=== PATIENT | male | born 1970 | race Two or more races ===

== ENCOUNTER 2018-12-13 02:47 | Emergency (ER) | payer MEDICAID ==
[~2018-12-13] VITALS: Ht 172.7 cm; Wt 81.6 kg
[2018-12-13] VITALS (7 sets, daily range): BP systolic 138–164; BP diastolic 80–88
[~2018-12-13 02:47] MED LIST: RISPERDAL3 MG PO
--- NOTE | 2018-12-13 02:47 | NUR ---
ED Nurse Note: pt brought in by [facility] from home c/o SI. per EMS report, pt's sister called 911, pt stating "Kill Me", denies HI/VH/AH. Pt currently repeately stating "Kill me, I have too many problems". Unable to assess pt's A&o status due to pt not answering questions. Pt farsi speaking, flat affect, skin warm and dry, resp even and unlabored on RA, -n/v/d, sinus tach on gambling monitor, vss, will cont monitor. ERMD at the bedside.
[2018-12-13] MEDS ORDERED: LORazepam Inj 2mg/ml 1ml IV ONE ×2 (03:00→12:30)
[2018-12-13 03:05] LABS: APPEARANCE,URINE CLEAR; BASOPHILS % (AUTO) 0.7 % (0.0-2.0); BILIRUBIN, URINE NEGATIVE (NEGATIVE); EOSINOPHILS % (AUTO) 0.4 % (0.0-3.0); GLUCOSE, URINE (UA) NEGATIVE (NEGATIVE); HEMATOCRIT 48.4 % (42.0-52.0); HEMOGLOBIN 16.2 G/DL (14.2-18.0); KETONES,URINE 2+ (NEGATIVE); LEUKOCYTE ESTERASE ,URINE 2+ (NEGATIVE); LYMPHOCYTES % (AUTO) 22.9 % (20.0-45.0); MEAN CORPUSCULAR VOLUME 85 FL (80-99); MONOCYTES % (AUTO) 9.2 % (1.0-10.0); NITRITE,URINE NEGATIVE (NEGATIVE); PH,URINE 5 (4.5-8.0); PLATELET COUNT 209 K/UL (150-450); PROTEIN,URINE 2+ (NEGATIVE); RED CELL DISTRIBUTION WIDTH 11.5 % (11.6-14.8); UROBILINOGEN,URINE NORMAL MG/DL (0.0-1.0); WHITE BLOOD COUNT 9.7 K/UL (4.8-10.8)
[2018-12-13 03:07] LABS: COLOR,URINE YELLOW
[2018-12-13 03:15] LABS: ANION GAP 10 mmol/L (5-15); BLOOD UREA NITROGEN 19 mg/dL (7-18); CALCIUM 9.4 MG/DL (8.5-10.1); CARBON DIOXIDE 27 MMOL/L (21-32); CHLORIDE 103 MMOL/L (98-107); CREATININE 0.9 MG/DL (0.55-1.30); POTASSIUM 3.5 MMOL/L (3.5-5.1); SODIUM 140 MMOL/L (136-145)
[2018-12-13 03:20] LABS: ALANINE AMINOTRANSFERASE 79 U/L (12-78); ALBUMIN 4.3 G/DL (3.4-5.0); ALBUMIN/GLOBULIN RATIO 1.2 (1.0-2.7); ALKALINE PHOSPHATASE 69 U/L (46-116); ASPARTATE AMINO TRANSFERASE 82 U/L (15-37); BILIRUBIN,TOTAL 0.6 MG/DL (0.2-1.0)
--- NOTE | 2018-12-13 03:20 | NUR ---
ED Nurse Note: Spoke with pt's sister, pt's sister stated that he has been displaying bizzare behavior prior to sat, pt had increase risperdal dose since sat, pt had dinner and took melatonin and slept 2 hrs today and woke up, start stating "Kill Me" and demonstrated bizzare behavior. Pt's sister states he has never had this behavior before. ERMD notified. will cont monitor.
--- NOTE | 2018-12-13 03:28 | Emergency Room Report ---
History of Present Illness General Chief Complaint: Behavioral Complaint Source: Patient, Family Member, EMS Present Illness HPI Is a 48-year-old male with a history of depression. He takes Lexapro and Risperdal. He presents with chief complaint of suicidal thoughts. There was a in the family and he took it pretty hard according to his sister. He's been more depressed and not sleeping much. He was talking to himself so his sister increase his Risperdal dose. Yesterday he was fine sleeping comfortably. Tonight he was unable to sleep so she gave him melatonin. She called 911 because he was catatonic and refuse to talk or move. When EMS came, he keeps saying that he want to . Here he told the nurse to "kill me because have too many issues." No alcohol or drug use. Allergies: Coded Allergies: No Known Allergies (Unverified , 12/13/18) Patient History Past Medical History: see triage record, old chart reviewed, psych hx, depression Past Surgical History: other Family History: none Social History: other Immunizations: UTD Reviewed Nursing Documentation: PMH: Agreed; PSxH: Agreed Nursing Documentation-PMH Past Medical History: No History, Except For History Of Psychiatric Problem: Yes - bipolar Review of Systems ENT: Denies: sore throat Cardiovascular: Denies: chest pain, palpitations Gastrointestinal/Abdominal: Denies: nausea, vomiting, diarrhea Musculoskeletal: Denies: back problems Skin: Denies: rash Psychiatric: Reports: prior history, depression, suicidal/homicidal ideations Neurological: Denies: BARNES, seizures All Other Systems: negative except mentioned in HPI Physical Exam Vital Signs Date Time Temp Pulse Resp B/P (MAP) Pulse Ox O2 Delivery O2 Flow Rate FiO2 12/13/18 02:27 98.4 112 18 159/86 98 Room Air vitals with high blood pressure Sp02 EP Interpretation: reviewed, normal General Appearance: alert/responsive, no apparent distress, non-toxic Head: normocephalic, atraumatic Eyes: PERRL, EOMI ENT: oropharynx normal Neck: supple/symm/no masses Respiratory: effort normal, no rhonchi, no wheezing Cardiovascular: no murmur, gallop, rub Gastrointestinal: non-tender, no mass, non-distended, no rebound/guarding, normal bowel sounds Musculoskeletal: gait & station normal Neurologic: oriented x3, sensory intact, motor strength/tone normal Skin: no rash, normal palpation Medical Decision Making Diagnostic Impression: Primary Impression: Suicidal behavior Qualified Codes: R46.89 - Other symptoms and signs involving appearance and behavior Additional Impression: Major depression with psychotic features ER Course Patient with depression with psychotic feature and suicidal thoughts. No alcohol or drugs. There is no trauma. In my opinion, patient is a danger to self and I put him on a 5150 hold. Patient is medically clear for psychiatric transfer. Lab Results Impression labs normal Last Vital Signs Date Time Temp Pulse Resp B/P (MAP) Pulse Ox O2 Delivery O2 Flow Rate FiO2 12/13/18 02:27 98.4 112 18 159/86 98 Room Air Status: improved Disposition: XFER TO PSYCH HOSP/UNIT Condition: Stable Referrals: ALICIA PARDO,REFERRING (PCP) Javier Moreno MD Dec 13, 2018 03:28
--- NOTE | 2018-12-13 03:34 | NUR ---
HAND-OFF: Report given to Cayla RUDOLPH and endorsec are, pt's family in the waiting room,pt vss, sinus tach on hall monitor, iv intact and patent, resp even and unlabored on RA, airway intact, no changes in neuro status/pt's behavioral condition.
--- NOTE | 2018-12-13 04:00 | NUR ---
ED Nurse Note: REASSESSED PT NEUROLOGICAL STATUS, PT IS AOX4, PT IS CURRENTLY COMPLIANT TO QUESTIONS. PT DENIES PAIN, PT IS ON ROOM AIR, ABLE TO AMBULATE WITH STEADY GAIT AND IS CONTINENT. PT HAS NO SUICIDEAL IDEATION AT THIS TIME OR PLAN
--- NOTE | 2018-12-13 05:30 | NUR ---
ED Nurse Note: PT IS RESTLESS, PACING BACK AND FORTH IN ROOM. PT IS CONSOLABLE, USE OF REORIENTATION TO ENVIRONMENT SUCCESSFUL. PT SHOWS NO SIGNS OF SELF HARM OR PLAN THEREOF.
--- NOTE | 2018-12-13 05:33 | NUR ---
ED Nurse Note: PT IV LINE DISCONTINUED, PER PRECAUTIONARY MEASURES, DUE TO PT HAVING BIPOLAR TENDANCIES (COOPERATIVE/UNCOOPERATIVE) ERMD AWARE.
--- NOTE | 2018-12-13 07:18 | NUR ---
ED Nurse Note: REPORT RECEIVED FROM KLAUDIA DURAN. PT AOX4, CALM AND COOPERATIVE. AMBULATORY WITH STEADY GAIT. PT PLACED ON BEATER BOSS. ON INITIAL ASSESSMENT, PT IS TACHYCARDIC WITH HR OF 113. PT DENIES SI/HI.
--- NOTE | 2018-12-13 08:15 | NUR ---
ED Nurse Note: KOSHER BREAKFAST TRAY PROVIDED FOR PT.
--- NOTE | 2018-12-13 09:21 | NUR ---
ED Nurse Note: REPORT GIVEN TO KLAUDIA SHEPPARD.
--- NOTE | 2018-12-13 11:09 | NUR ---
ED Nurse Note:report given to mckayla peraza
--- NOTE | 2018-12-13 11:39 | NUR ---
ED Nurse Note:pt. was picked up by j[facility] for transfer to [facility], report givne pt. is stable for transfer
--- NOTE | 2018-12-13 11:45 | NUR ---
ED Nurse Note: AMBULANCE AT THE BEDSIDE. PT IS AGITATED AND COMBATIVE. NOTIFIED ERMD. RECEIVE VERBAL ORDER FROM ERMD TO GIVE 5MG HALDOL IM AND 2MG ATIVAN IM. WILL FOLLOW UP ON ORDER.
[2018-12-13] MEDS ORDERED: Haloperidol 5mg/ml Inj ONE (11:56)
[2018-12-13] MEDS ORDERED: LORazepam Inj 2mg/ml 1ml ONE (11:56)
--- NOTE | 2018-12-13 12:20 | NUR ---
ED Nurse Note: PT IS MORE CALM AFTER MEDS, 121/69, HR OF 101, RR 20, RA O2 SAT OF 97%. PT WAS TRANSFERRED OUT OF ER VIA GURNEY BY AMBULANCE. NO S/S OF DISTRESS.
[2018-12-13] MEDS ORDERED: Haloperidol 5mg/ml Inj IM ONE (12:30)
== END 2018-12-13 12:00 ==
LOC: EDBD 02:47 → EMR 03:09
DX: R45.851 Suicidal ideations (principal); F32.9 Major depressive disorder, single episode, unspecified; F31.9 Bipolar disorder, unspecified
CPT/HCPCS: 36415; 80053; 80307; 80329; 81003; 85025; 96372; 96374; 96376; 99285; J1630